=== PATIENT | male | born 1990 | race Caucasian/White ===

== ENCOUNTER 2019-02-12 16:02 | Emergency (ER) | payer SELFPAY ==
[~2019-02-12] VITALS: Ht 180.3 cm; Wt 79.4 kg
[2019-02-12 16:16] VITALS: BP_SYST 119
--- NOTE | 2019-02-12 18:20 | NUR ---
Patient to ER bed 7 to gown for evaluation. Side rails up. Report given to ALFONZO PARRISH
--- NOTE | 2019-02-12 18:25 | NUR ---
Pt brought by self, A&Ox4, pt presents to ER with R eye pain after he was hit by a paintball , c/o blurred vision, skin pink and warm, pt also c/o scrotal pain after he fell during paintball injury, respirations even and unlabored.
[2019-02-12] MEDS ORDERED: KETOROLAC TROMETHAMINE 60 MG/2 ML VIAL IM ONE (18:45)
--- NOTE | 2019-02-12 18:45 | NUR ---
Dr Menendez at bedside examining patient
--- NOTE | 2019-02-12 19:17 | NUR ---
Report given to Damon PARRISH
[2019-02-12 19:57] VITALS: BP_SYST 119
--- NOTE | 2019-02-12 19:57 | NUR ---
Patient given written and verbal discharge instructions and verbalizes understanding. ER MD DR SCHNEIDER discussed with patient the results and treatment provided. Patient in stable condition. ID arm band removed. Rx of MOTRIN AND NORCO given. Patient educated on pain management and to follow up with PMD. Pain Scale . Opportunity for questions provided and answered. Medication side effect fact sheet provided.
== END 2019-02-12 19:57 | disposition home or self-care (01) ==
LOC: SED 16:02
DX: S01.81XA Laceration without foreign body of other part of head, initial encounter (principal); R10.30 Lower abdominal pain, unspecified; W21.09XA Struck by other hit or thrown ball, initial encounter; Y93.79 Activity, other specified sports and athletics; Y92.89 Other specified places as the place of occurrence of the external cause; Y99.8 Other external cause status
CPT/HCPCS: 70450-TC; 70486-TC; 96372; 99284